=== PATIENT | male | born 2000 | race Caucasian/White ===

== ENCOUNTER 2018-10-09 14:48 | Emergency (ER) | payer OTHER ==
--- NOTE | 2018-10-09 15:52 | EDPHY ---
H & P Stated Complaint: Fever/fatigue/sore throat Time Seen by Provider: 10/09/18 15:46 HPI/ROS: HPI: This is a 18-year-old male who presents with Chief Complaint: Sore throat Location: Throat Quality: Pain Duration: 3-4 days Signs and Symptoms: no fever, no nausea, no vomiting, no diarrhea, no urinary symptoms, no chest pain, no shortness of breath, no wheezing, no cough, + sore throat, no neck stiffness, no joint pain, + swollen glands, no ear pain, no rash , + white spots on tonsils, no drooling Timing: Rapid onset, constant Severity: Moderate Context: Patient is student at [employer] presents with 3- 4 day history of sore throat, swollen glands, pain with swallowing and white spots on tonsils. He was seen at the urgent care yesterday and rapid strep was negative. He has not been taking any [id number] antipyretics. Reports decreased appetite. Denies fever, neck stiffness, headache, abdominal pain. Modifying Factors: None Comment: ROS: A comprehensive 10 system review of systems is otherwise negative aside from elements mentioned in the history of present illness. MEDICAL/SURGICAL/SOCIAL HISTORY: Medical history: Atrial septal defect Surgical history: Denies Social history: Originally from [place]. Family history noncontributory. CONSTITUTIONAL: Well-developed, well-nourished, young adult white male, nontoxic appearing, awake and alert, no obvious distress HEENT: Atraumatic and normocephalic, PERRL, EOMI. Nares patent; no rhinorrhea; no nasal mucosal edema. Tympanic membranes clear. Oropharynx clear, tonsils 1 + with mild erythema and white exudate; right tonsil is larger than left tonsil ; uvula midline, halitosis moist pink mucosa. Airway patent. + body anterior cervical lymphadenopathy. No meningismus. Cardiovascular: Normal S1/S2, mild tachycardia, regular rhythm, without murmur rub or gallop. PULMONARY/CHEST: Symmetrical and nontender. Clear to auscultation bilaterally. Good air movement. No accessory muscle usage. ABDOMEN: Soft, nondistended, nontender, no rebound, no guarding, no peritoneal signs, no masses or organomegaly. No CVAT. EXTREMITIES: 2/2 pulses, strength 5/5, no deformities, no clubbing, no cyanosis or edema. NEUROLOGICAL: no focal neuro deficits. GCS 15. Speech clear. SKIN: Warm and dry, no erythema. no rash. Good capillary refill. Source: Patient, Old records Exam Limitations: No limitations - Personal History Current Tetanus/Diphtheria Vaccine: Yes - Medical/Surgical History Hx Asthma: No Hx Chronic Respiratory Disease: No Hx Diabetes: No Hx Cardiac Disease: No Hx Renal Disease: No Hx Cirrhosis: No Hx Alcoholism: No Other PMH: Heart condition: Atrial septal defect - Social History Smoking Status: Never smoked Constitutional: Initial Vital Signs Temperature (C) 37.2 C 10/09/18 14:52 Heart Rate 117 H 10/09/18 14:52 Respiratory Rate 18 10/09/18 14:52 Blood Pressure 112/74 10/09/18 14:52 O2 Sat (%) 93 10/09/18 14:52 O2 Delivery Mode Room Air Allergies/Adverse Reactions: No Known Allergies Allergy (Unverified 10/09/18 14:56) Home Medications: Medication Instructions Recorded Amoxicillin/Clavulanate Pot 875 mg PO BID #20 tab 10/09/18 [Augmentin 875 MG TAB (*)] predniSONE [predniSONE TAPER] 10 mg PO DAILY 6 Days ea 10/09/18 Medical Decision Making ED Course/Re-evaluation: Vital signs reviewed and show mild tachycardia. No signs of tonsillar abscess, meningitis, dehydration Reviewed records and rapid strep test was positive from yesterday. Given Augmentin, Percocet and Decadron 10 mg in the emergency room Patient is tolerating p.o. Appropriate to discharge home with prescription for Augmentin times 10 days and steroid taper. School excuse provided until Wednesday. This patient was seen under the supervision of my secondary supervising physician. I evaluated care for this patient with attending. Differential Diagnosis: Differential diagnosis includes but is not limited to infectious mononucleosis, strep tonsillitis, upper respiratory infection, viral pharyngitis, sinusitis, tonsillar abscess. - Data Points Medications Given: Discontinued Medications Amoxicillin/Clavulanate Potassium (Augmentin 875mg) 875 mg PO EDNOW ONE PRN Reason: Protocol Stop: 10/09/18 16:03 Last Admin: 10/09/18 16:10 Dose: 875 mg Dexamethasone (Decadron) 10 mg PO EDNOW ONE Stop: 10/09/18 16:03 Last Admin: 10/09/18 16:13 Dose: 10 mg Oxycodone/Acetaminophen (Percocet 5/325) 1 tab PO EDNOW ONE Stop: 10/09/18 16:04 Last Admin: 10/09/18 16:11 Dose: 1 tab Departure - Departure Disposition: Home, Routine, Self-Care Clinical Impression: Strep tonsillitis Condition: Good Instructions: Strep Throat (ED) Additional Instructions: Consume a minimum of 8-10 glasses of water or electrolyte fluid replacement drinks that include Gatorade, Powerade, Pedialyte. Eat a bland diet for the next 48 hours and then slowly advance as tolerated. Take antibiotics as directed. Take all 10 days. Do not skip a dose. Take steroid taper. Take Tylenol 650 mg every 4 hours and/or Ibuprofen 600 mg every 8 hours with food as needed for pain/fever. Referrals: [facility],. [Clinic] - As per Instructions Stand Alone Forms: School Excuse Prescriptions: Amoxicillin/Clavulanate Pot [Augmentin 875 MG TAB (*)] 875 mg PO BID #20 tab predniSONE [predniSONE TAPER] 10 mg PO DAILY 6 Days ea
[2018-10-09] MEDS ORDERED: AMOXICILLIN/CLAVULANATE POT 875/125 MG TAB PO ONE (16:02)
[2018-10-09] MEDS ORDERED: DEXAMETHASONE 4 MG TAB PO ONE (16:02)
[2018-10-09] MEDS ORDERED: OXYCODONE/APAP 5/325 TAB PO ONE (16:03)
[2018-10-09 16:19] VITALS: BP 124/80
== END 2018-10-09 16:15 | disposition home or self-care (01) ==
DX: J03.00 Acute streptococcal tonsillitis, unspecified (principal)

== ENCOUNTER 2018-10-11 17:57 | Emergency (ER) | payer OTHER ==
[2018-10-11] MEDS ORDERED: NS 1,000 ML IV ONE (18:52)
[2018-10-11] MEDS ORDERED: KETOROLAC 15 MG/1 ML SDV IVP ONE (18:52)
[2018-10-11] MEDS ORDERED: DEXAMETHASONE 10 MG/ML VIAL IVP ONE (18:52)
[2018-10-11 19:12] LABS: PLATELET COUNT 175 10^3/uL (150-400)
--- NOTE | 2018-10-11 19:18 | EDPHY ---
H & P Stated Complaint: st/dx + strep 2 days ago/coninuing fever despite abx Time Seen by Provider: 10/11/18 18:41 HPI/ROS: CHIEF COMPLAINT: Continued fever HISTORY OF PRESENT ILLNESS: 18-year-old immunocompetent male seen in the emergency department 2 days ago months of sore throat, diagnosis strep pharyngitis, given prescription for Augmentin, prednisone, returns to the ER stating that he is throat is feeling improvement however he remains febrile, defervesce is with Tylenol Motrin, "feeling terrible". Denies: Nuchal rigidity, headache REVIEW OF SYSTEMS: 10 systems reviewed and negative with the exception of the elements mentioned in the history of present illness PAST MEDICAL & SURGICAL HISTORY: No pertinent medical or surgical history SOCIAL HISTORY:Student nonsmoker PHYSICAL EXAM (Prior to examination, patient consented to physical exam, hands were washed and my usual and customary physical exam procedures followed) 1) GENERAL: Well-developed, well-nourished, alert and oriented. Appears nontoxic 2) HEAD: Normocephalic, atraumatic 3) HEENT: Pupils equal, round, reactive to light bilaterally. Sclera anicteric. Nasopharynx, oropharynx, clear, no lesions. Dry Mucous membranes. Bilateral , symmetrical tonsillar enlargement without exudate. No trismus no drooling. No hot potato voice. No submental, submandibular or sublingual induration, erythema, pain, edema Ears bilaterally with normal tympanic membranes. 4) NECK: Full range of motion, no meningeal signs. 5) LUNGS: Clear auscultation bilaterally, no wheezes, no rhonchi, no retractions. 6) HEART: Regular rate and rhythm, no murmur, no heave, no gallop. 7) ABDOMEN: No guarding, no rebound, no focal tenderness, negative McBurney's, negative Vega's, negative Rovsing's, negative peritoneal sign, specifically no left upper quadrant pain or splenomegaly 8) MUSCULOSKELETAL: Moving all extremities, no focal areas of tenderness, no obvious trauma. No peripheral edema or discoloration. 9) BACK: No CVA tenderness, no midline vertebral tenderness, no fluctuance, no step-off, no obvious trauma, no visual or palpable abnormality. 10) SKIN: No rash, no petechiae. 11) Psychiatric: Patient is oriented X 3, there is no agitation. DIFFERENTIAL DIAGNOSIS: In no particular order, my differential diagnosis includes, but is not limited to, strep pharyngitis, viral pharyngitis, peritonsillar abscess, retropharyngeal abscess or phlegmon, mononucleosis, meningitis, Lemierre syndrome. - Personal History Current Tetanus Diphtheria and Acellular Pertussis (TDAP): Yes - Medical/Surgical History Hx Asthma: No Hx Chronic Respiratory Disease: No Hx Diabetes: No Hx Cardiac Disease: Yes Hx Renal Disease: No Hx Cirrhosis: No Hx Alcoholism: No Hx HIV/AIDS: No Hx Splenectomy or Spleen Trauma: No Other PMH: Heart condition: Atrial septal defect - Social History Smoking Status: Never smoked Constitutional: Initial Vital Signs Temperature (C) 38.3 C 10/11/18 18:03 Heart Rate 105 H 10/11/18 18:03 Respiratory Rate 18 10/11/18 18:03 Blood Pressure 100/63 10/11/18 18:03 O2 Sat (%) 93 10/11/18 18:03 O2 Delivery Mode Room Air Allergies/Adverse Reactions: No Known Allergies Allergy (Verified 10/11/18 18:03) Home Medications: Medication Instructions Recorded Amoxicillin/Clavulanate Pot 875 mg PO BID #20 tab 10/09/18 [Augmentin 875 MG TAB (*)] predniSONE [predniSONE TAPER] 10 mg PO DAILY 6 Days ea 10/09/18 Medical Decision Making ED Course/Re-evaluation: 8:00 p.m.: Re-evaluation after IV fluids, IV Decadron, Toradol. He is feeling improvement. Discussed with the patient his laboratory studies, negative mononucleosis testing. Doubt meningitis. Doubt deep space infection such as phlegmon or peritonsillar abscess. Doubt Lemierre syndrome. At this time I think the patient can be discharged home. Recommend follow up with ENT. he feels comfortable being discharged. Patient feels comfortable being discharged. All questions and concerns addressed by myself. Patient given my usual and customary discharge precautions and instructions regarding their clinical impression. Care of patient under supervision of secondary supervising physician Dr Rivas . - Data Points Laboratory Results: Laboratory Results 10/11/18 19:03 10/11/18 19:03 10/11/18 10/11/18 10/11/18 19:03 19:03 19:03 WBC 6.05 10^3/uL 10^3/uL (3.80-9.50) RBC 5.43 10^6/uL 10^6/uL (4.40-6.38) Hgb 14.9 g/dL g/dL (13.7-17.5) Hct 43.8 % % (40.0-51.0) MCV 80.7 fL L fL (81.5-99.8) MCH 27.4 pg L pg (27.9-34.1) MCHC 34.0 g/dL g/dL (32.4-36.7) RDW 14.4 % % (11.5-15.2) Plt Count 175 10^3/uL 10^3/uL (150-400) MPV 9.4 fL fL (8.7-11.7) Neut % (Auto) Not Reported Lymph % (Auto) Not Reported [place] % (Auto) Not Reported Eos % (Auto) Not Reported Baso % (Auto) Not Reported Nucleat RBC Rel Count Not Reported Absolute Neuts (auto) Not Reported Absolute Lymphs (auto) Not Reported Absolute Monos (auto) Not Reported Absolute Eos (auto) Not Reported Absolute Basos (auto) Not Reported Absolute Nucleated RBC Not Reported Immature Gran % Not Reported Seg Neutrophils % 68.0 % % Band Neutrophils % 1.0 % % Lymphocytes % 26.0 % % Monocytes % 5.0 % % Eosinophils % 0.0 % % Basophils % 0.0 % % Metamyelocytes % 0.0 % % Myelocytes % 0.0 % % Promyelocytes % 0.0 % % Blast Cells % 0.0 % % Immature Gran # Not Reported Absolute Seg Neuts 4.11 10^3/uL 10^3/uL (1.70-6.50) Absolute Band Neuts 0.06 10^3/uL 10^3/uL (0.00-0.70) Absolute Lymphocytes 1.57 10^3/uL 10^3/uL (1.00-3.00) Absolute Monocytes 0.30 10^3/uL 10^3/uL (0.30-0.80) Absolute Eosinophils 0.00 10^3/uL L 10^3/uL (0.03-0.40) Absolute Basophils 0.00 10^3/uL L 10^3/uL (0.02-0.10) Absolute Metamyelocyte 0.00 10^3/mL 10^3/mL (0.00-0.00) Absolute Myelocytes 0.00 10^3/mL 10^3/mL (0.00-0.00) Absolute Promyelocytes 0.00 10^3/uL 10^3/uL (0.00-0.00) Absolute Plasma Cells 0.00 10^3/uL 10^3/uL (0.00-0.00) Nucleated RBCs 0 /100 WBC /100 WBC (0-0) Atypical Lymphocytes 1+ H Absolute Blast Cells 0.00 10^3/uL 10^3/uL (0.00-0.00) Plasma Cells % 0.0 % % Platelet Estimate ADEQUATE (ADEQ) Sodium 133 mEq/L L mEq/L (135-145) Potassium 3.7 mEq/L mEq/L (3.5-5.2) Chloride 98 mEq/L mEq/L (97-110) Carbon Dioxide 23 mEq/l mEq/l (22-31) Anion Gap 12 mEq/L mEq/L (6-14) BUN 15 mg/dL mg/dL (7-23) Creatinine 1.0 mg/dL mg/dL (0.7-1.3) Estimated GFR > 60 Glucose 110 mg/dL H mg/dL (70-100) Calcium 8.7 mg/dL mg/dL (8.5-10.4) Monoscreen NEGATIVE (NEGATIVE) Medications Given: Discontinued Medications Dexamethasone (Decadron Injection) 10 mg IVP EDNOW ONE Stop: 10/11/18 18:53 Last Admin: 10/11/18 19:16 Dose: 10 mg Sodium Chloride (Ns) 1,000 mls @ 0 mls/hr IV ONCE ONE PRN Reason: Wide Open Stop: 10/11/18 18:53 Last Admin: 10/11/18 19:15 Dose: 1,000 mls Ketorolac Tromethamine (Toradol) 15 mg IVP EDNOW ONE Stop: 10/11/18 18:53 Last Admin: 10/11/18 19:16 Dose: 15 mg Departure - Departure Disposition: Home, Routine, Self-Care Clinical Impression: Acute streptococcal pharyngitis Condition: Good Instructions: Strep Throat (ED) Additional Instructions: Return to the ER immediately if you cannot swallow, have drooling, fevers, neck stiffness, cannot open your jaw, or any other symptoms that concern you. Keep taking medication until finished. Referrals: Russell Shannon MD [Medical Doctor] - 2-3 days, call for appt. Stand Alone Forms: School Excuse
[2018-10-11 20:14] VITALS: BP 107/59
== END 2018-10-11 20:14 | disposition home or self-care (01) ==
DX: J02.0 Streptococcal pharyngitis (principal)
CPT/HCPCS: 96374; J1100; J1885